=== PATIENT | female | born 1960 | race Two or more races ===

== ENCOUNTER 2021-01-23 13:55 | Emergency (ER) | payer OTHER ==
[~2021-01-23] VITALS: Ht 167.6 cm; Wt 66.0 kg
[2021-01-23] MEDS ORDERED: TETanus/Pertussis (Acell)/Diphther VAC/PF (Tdap-Adult) 0.5ml syringe IMVAC ONE (18:10)
[2021-01-23] MEDS ORDERED: HYDROcodone/acetaminophen 10/325mg tab PO ONE (18:10)
[2021-01-23] MEDS ORDERED: HYDR-3965 PO (19:29)
[2021-01-23 20:04] VITALS: BP 130/86
== END 2021-01-23 20:15 | disposition home or self-care (01) ==
LOC: ER 13:56
DX: S43.491A Other sprain of right shoulder joint, initial encounter (principal); S00.11XA Contusion of right eyelid and periocular area, initial encounter; S00.81XA Abrasion of other part of head, initial encounter; M25.561 Pain in right knee; M25.562 Pain in left knee; L08.9 Local infection of the skin and subcutaneous tissue, unspecified; W22.8XXA Striking against or struck by other objects, initial encounter; Y93.89 Activity, other specified; Y92.89 Other specified places as the place of occurrence of the external cause; Y99.8 Other external cause status
CPT/HCPCS: 70450; 70486; 73030; 73564; 90471; 90715; 99285